=== PATIENT | male | born 1940 | race Caucasian/White ===

== ENCOUNTER 2022-05-03 19:04 | Emergency (ER) | payer OTHER ==
--- OUTSIDE RECORDS SUMMARY | 2022-05-03 19:08 | XMS REPORT | Continuity of Care Document ---
:[address] [facility] t Address [address] [place] [address] [address] [place] [address] Care Team Providers Name Role Phone CHELSEA JULIAN Primary Care Physician Unavailable PEDRO ARREOLA Attending Clinician Unavailable TRAV ALTAMIRANO Attending Clinician Unavailable VALERY CANALES Attending Clinician Unavailable RADIOLOGY Attending Clinician Unavailable Radiology Attending Clinician Unavailable CHELSEA JULIAN Admitting Clinician Unavailable Payers Payer Name Policy Type Policy Number Effective Date Expiration Date S anthony FOR LIFE [id number] 2021 00:00:00 MEDICARE PART A [id number] 2006 \T\ B 00:00:00 FOR LIFE [id number] 2021 00:00:00 Problems This patient has no known problems. Allergies, Adverse Reactions, Alerts Allergy Allergy Status Severity Reaction(s) Onset Inactive Treating Comm ents Source Name Type Date Date Clinician NO KNOWN Drug Active [facility] ALLERGIE Class [facility] of [facility] [place] [facility] Social History Social Habit Start Date Stop Date Quantity Comments Source Sex Assigned At [birth year] [facility] 00:00:00 00:00:00 Medical Branch Smoking Status Start Date Stop Date Source Tobacco smoking consumption [facility] Medical unknown Branch Medications Ordered Filled Start Stop Current Ordering Indication Dosage Frequency Signature Comments Components Source Medication Medication Date Date Medication? Clinician (SIG) Name Name iopamidol 2021-02- No [id number] 79mL 79 mL, U nivers (ISOVUE 2-08 12-08 Intravenou ity o f 370-500 mL) 17:30: 16:44 s, ONCE, 1 [place] injection 00 :00 dose, On Medica l 79 mL [facility] Branch 01/17/22 at 1130, Routine Procedures Procedure Date / Time Performing Clinician Source Performed HB CREATININE SERUM/BLOOD 2022-01-17 17:28:00 Radiology Un [facility] FOR IMAGING Medical Branch CT ABDOMEN PELVIS W 2022-01-17 16:43:17 Requisition, Paper [facility] CONTRAST Medical Branch [facility] PATIENT FINANCIAL 2022-01-17 15:47:15 Doctor Unassigned, [facility] POLICY [facility] NO SHOW OR MISSED 2022-01-17 15:46:57 Doctor Unassigned, [facility] APPOINTMENT POLICY [facility] ACKNOWLEDGEMENT NOTICE OF PRIVACY 2022-01-17 15:46:36 Doctor Unassigned, [facility] PRACTICES [facility] ASSIGNMENT OF BENEFITS 2022-01-17 15:46:19 Doctor Unassigned, [facility] CONSENT/REFUSAL FOR 2022-01-17 15:46:03 Doctor Unassigned, [facility] DIAGNOSIS AND TREATMENT [facility] Encounters Start End Encounter Admission Attending Care Care Encounter Source Date/Time Date/Time Type Type Clinicians Facility Department ID 2022-04-22 2022-04-22 Emergency E MAXWELL, [facility] [id number] [facility] 16:56:00 20:06:00 PEDRO 2022-01-29 2022-02-02 Outpatient E EVELIA [facility] MED [id number] [facility] 16:36:00 12:35:00 TRAV 2022-01-31 2022-01-31 Outpatient [facility] [id number] [place] 13:30:00 13:30:00 Health 2022-01-27 2022-01-27 Emergency E ALLY, [facility] [id number] [facility] 11:22:00 14:19:00 VALERY 2022-01-17 2022-01-17 Outpatient R RADIOLOGY [facility] [id number] [facility] 09:48:46 23:59:00 ity [facility] Medical Branch 2022-01-17 2022-01-17 Hospital Radiology [facility] [id number] [facility] 09:48:46 23:59:00 Encounter [place] [id number] itBonny [id number] [facility] [id number] [place] [address] Branch 2021-10-18 2021-10-18 Emergency E ALLY, FB FB [id number] [facility] 10:08:00 12:33:00 VALERY Results Test Description Test Time Test Comments Results Result Comments Source POCT CREATININE 2022-01-17 20:19:45 Test Item Value Reference Range Interpretation Comme nts POCT Creatinine (test code = [id number]) 1.3 mg/dL 0.6-1.3 Lab Interpretation (test code = 30734-7) Normal [facility]
[2022-05-03] MEDS ORDERED: ONDANSETRON 4 MG/2 ML VIAL ONE (20:02)
[2022-05-03] MEDS ORDERED: HYDRALAZINE HCL 20 MG/ML VIAL ONE (20:02)
[2022-05-03] MEDS ORDERED: MORPHINE 4 MG/ML SYR ONE (20:02)
--- NOTE | 2022-05-03 20:35 | RAD REPORT ---
EXAM DESCRIPTION: CT - Head Brain Wo Cont - 05/03/2022 8:00 pm CLINICAL HISTORY: Dizziness COMPARISON: None TECHNIQUE: Computed axial tomography of the head was obtained. IV contrast was not requested. All CT scans are performed using dose optimization technique as appropriate and may include automated exposure control or mA/KV adjustment according to patient size. FINDINGS: An intracranial bleed is not seen The ventricles are normal in caliber No extra-axial fluid collection is noted. Empty sella turcica. No significant hypodensity within the brain. Fluid within the sinuses/ mastoids is not seen. IMPRESSION: No acute intracranial abnormality is seen If patient's symptoms persist MRI of the brain would be recommended
--- NOTE | 2022-05-03 20:42 | RAD REPORT ---
EXAM DESCRIPTION: CT - Abdomen Pelvis Wo Contrast - 05/03/2022 8:02 pm CLINICAL HISTORY: Abdominal pain COMPARISON: None TECHNIQUE: Computed axial tomography of the abdomen and pelvis was obtained. IV and oral contrast we re not requested. All CT scans are performed using dose optimization technique as appropriate and may include automated exposure control or mA/KV adjustment according to patient size. FINDINGS: The evaluation of solid organs, vessels and bowel is limited secondary to the lack of con trast administration. Bilateral renal cysts. Largest right kidney measuring 11 centimeters. No hydronephrosis. Atherosclerotic disease. Liver, spleen, pancreas and adrenals appear grossly normal Diverticula stem from the colon without evidence of diverticulitis Moderate to marked prostatic enlargement IMPRESSION: No acute abnormality is displayed.
--- NOTE | 2022-05-03 21:05 | RAD REPORT ---
EXAM DESCRIPTION: Yudelka Single View05/03/2022 8:43 pm CLINICAL HISTORY: sob COMPARISON: none FINDINGS: The lungs appear clear of acute infiltrate. The heart is normal size IMPRESSION: No acute abnormalities displayed
[2022-05-03 21:27] LABS: Absolute Lymphocytes (CBC) 0.7 K/uL (0.7-4.9); Hematocrit 38.5 % (39.6-49.0); Lymphocytes % 24.7 % (15.3-44.8); MPV 9.6 fL (7.6-11.3); RBC Red Blood Cell Count 4.23 M/uL (4.33-5.43)
[2022-05-03 21:33] LABS: Protime INR 1.02
[2022-05-03 21:51] LABS: ALT/SGPT 18 U/L (16-61); AST/SGOT 11 U/L (15-37); Albumin 4.1 g/dL (3.4-5.0); Alkaline Phosphatase 65 U/L (45-117); BUN Blood Urea Nitrogen 12 mg/dL (7-18); Bicarbonate 30 mEq/L (21-32); Bilirubin Direct < 0.1 mg/dL (0-0.2); Bilirubin Total 0.4 mg/dL (0.2-1.0); Glomerular Filtration Rate 59 ml/min (=/>90); Glucose Level 173 mg/dL (74-106); NT PRO-BNP 544 pg/mL (<450); Potassium 3.4 mEq/L (3.5-5.1); Protein, Total 7.3 g/dL (6.4-8.2); Sodium Level 136 mEq/L (136-145); Troponin High Sensitivity 23.3 pg/mL (<58.9)
--- NOTE | 2022-05-03 23:00 | ER ---
Nurse's Notes [facility] Name: Hero Carney Age: 82 yrs Sex: Male : 1940 Arrival Date: 05/03/2022 Time: 19:09 Bed 3 Private MD: Diagnosis: Vomiting, unspecified;Right renal cyst, acute vomiting, abdominal pain, hypertensive emergency, history of recurrent pancreatitis, elevated lipase Presentation: 05/03 19:27 Chief complaint: Patient states: I have pancreatitis and it seems like every time it kd3 flares up my blood pressure elevates. We are very worried about the blood pressure. I am already on medications for pancreatitis. I am just worried about the blood pressure. Ebola Screen: No symptoms or risks identified at this time. Initial Sepsis Screen: Does the patient meet any 2 criteria? No. Patient's initial sepsis screen is negative. Does the patient have a suspected source of infection? No. Patient's initial sepsis screen is negative. Risk Assessment: Do you want to hurt yourself or someone else? Patient reports no desire to harm self or others. Onset of symptoms was May 03, 2022. 19:27 Method Of Arrival: Ambulatory kd3 19:31 Coronavirus screen: Vaccine status: Patient reports receiving the 2nd dose of the covid kd3 vaccine. 19:31 Acuity: LUCINDA 2 kd3 Triage Assessment: 19:31 Headache History: Denies prior headaches. General: Appears uncomfortable, Behavior is kd3 calm, cooperative. Pain: Complains of pain in headache Pain currently is 8 out of 10 on a pain scale. Pain began gradually, Also complains of nausea. Neuro: Level of Consciousness is awake, alert, obeys commands, Oriented to person, place, time, situation. Historical: - Allergies: 19:31 No Known Allergies; kd3 - Immunization history:: Adult Immunizations up to date. - Social history:: Smoking status: unknown Smoking status: Patient denies any tobacco usage or history of. - Family history:: not pertinent. Screenin:08 [facility] ED Fall Risk Assessment (Adult) History of falling in the last 3 months, vc1 including since admission No falls in past 3 months (0 pts) Confusion or Disorientation No (0 pts) Intoxicated or Sedated No (0 pts) Impaired Gait No (0 pts) Mobility Assist Device Used No (0 pt) Altered Elimination No (0 pt) Score/Fall Risk Level 0 - 2 = Low Risk Oriented to surroundings, Maintained a safe environment, Educated pt \T\ family on fall prevention, incl call for assistance when getting out of bed. Abuse screen: Denies threats or abuse. Nutritional screening: No deficits noted. Tuberculosis screening: No symptoms or risk factors identified. Assessment: 19:31 Pain: Complains of pain in headache. Neuro: Level of Consciousness is awake, alert, kd3 obeys commands, Oriented to person, place, time, situation. Respiratory: Airway is patent Trachea midline Respiratory effort is even, unlabored, Respiratory pattern is regular, symmetrical. 21:00 Reassessment: No changes from previously documented assessment. Patient and/or family vc1 updated on plan of care and expected duration. Pain level reassessed. 22:00 Reassessment: Patient and/or family updated on plan of care and expected duration. Pain vc1 level reassessed. Patient is alert, oriented x 3, equal unlabored respirations, skin warm/dry/pink. Patient states feeling better. 23:05 Reassessment: Patient and/or family updated on plan of care and expected duration. Pain vc1 level reassessed. Patient is alert, oriented x 3, equal unlabored respirations, skin warm/dry/pink. Patient states symptoms have improved. Vital Signs: 19:27 Pulse 72; Resp 19; Temp 98.1(O); Pulse Ox 100% ; kd3 19:30 BP 235 / 81; kd3 19:31 Weight 81.19 kg; Height 6 ft. 0 in. ; kd3 21:29 BP 165 / 77; Pulse 70; Resp 17; Pulse Ox 100% ; vc1 22:00 BP 168 / 76; Pulse 55; Resp 14; Pulse Ox 99% ; vc1 23:06 BP 177 / 77; Pulse 67; Resp 13; Pulse Ox 98% ; vc1 19:31 Body Mass Index 24.28 (81.19 kg, 182.88 cm) kd3 ED Course: 19:09 Patient arrived in ED. mr 19:16 Adi Andrews MD is Attending Physician. sp4 19:31 Triage completed. kd3 19:31 Arm band placed on right wrist. kd3 19:40 Eloise Pace RN is Primary Nurse. vc1 20:02 CT Head Brain wo Cont In Process Unspecified. EDMS 20:04 CT Abd/Pelvis - Without Contrast In Process Unspecified. EDMS 20:45 XRAY Chest (1 view) In Process Unspecified. EDMS 21:00 Patient has correct armband on for positive identification. Placed in gown. Bed in low vc1 position. Call light in reach. Client placed on continuous cardiac and pulse oximetry monitoring. NIBP monitoring applied. 21:15 Initial lab(s) drawn, by me, sent to lab. Inserted saline lock: 20 gauge in left bb antecubital area, using aseptic technique. Blood collected. 23:19 No provider procedures requiring assistance completed. IV discontinued, intact, vc1 bleeding controlled, No redness/swelling at site. Pressure dressing applied. Administered Medications: 21:25 Drug: Ondansetron IVP 4 mg Route: IVP; Site: left antecubital; vc1 23:20 Follow up: Response: No adverse reaction; Nausea is decreased; Other vc1 21:25 Drug: morphine IVP or IV 4 mg Route: IVP; Infused Over: 4 mins; Site: left antecubital; vc1 22:00 Follow up: Response: No adverse reaction; Marked relief of symptoms; Pain is decreased vc1 22:57 Not Given (Duplicate Order): hydrALAZINE IVP 20 mg IVP once sp4 23:05 Drug: cloNIDine PO 0.2 mg Route: PO; vc1 23:20 Follow up: Response: Medication administered at discharge. vc1 23:05 Drug: [place] PO 10 mg-325 mg 1 tabs Route: PO; vc1 23:20 Follow up: Response: Medication administered at discharge. vc1 23:05 Drug: Ondansetron PO 4 mg Route: PO; vc1 23:20 Follow up: Response: Medication administered at discharge. vc1 Medication: 23:08 VIS not applicable for this client. vc1 Outcome: 23:00 Discharge ordered by . sp4 23:19 Discharged to home ambulatory. vc1 23:19 Condition: improved 23:19 Discharge instructions given to patient, Instructed on discharge instructions, follow up and referral plans. medication usage, Demonstrated understanding of instructions, follow-up care, medications, Prescriptions given X 2. 23:21 Patient left the ED. vc1 Signatures: Dispatcher [employer] RICHARD Asuncion Barker mr LavonneMillya, RN RN bb Kasie Esteves, RN RN kd3 Eloise Pace, RN RN vc1 Adi Andrews MD MD sp4
--- NOTE | 2022-05-03 23:00 | EDPHYS ---
Physician Documentation [facility] Name: Hero Carney Age: 82 yrs Sex: Male : 1940 Arrival Date: 05/03/2022 Time: 19:09 Bed 3 Private MD: ED Physician Adi Andrews HPI: 05/03 19:16 This 82 yrs old Male presents to ER via Unassigned with complaints of High sp4 Blood Pressure, Dizziness, Headache. 20:12 Very pleasant 82-year-old male with a history of hypertension and recurrent sp4 pancreatitis presents with acute worsening of nausea vomiting and abdominal pain and associated high blood pressure at home 245/100. Patient states that he has been in and out of [facility] in [place] for recurrent pancreatitis since January 2022. Patient developed persistent nausea and vomiting on January 24, 2022 and was evaluated several times at [facility] in [place] with 5 CTs and multiple other tests to determine the nature of acute pancreatitis and recurrent pancreatitis. Patient is scheduled to get upper endoscopy as well. Today patient developed vomiting he has vomited twice also worsening abdominal pain in upper abdomen and additionally noticed that his pressure was very high at home. Patient reported dizziness and associated headache. Historical: - Allergies: 19:31 No Known Allergies; kd3 - Immunization history:: Adult Immunizations up to date. - Social history:: Smoking status: unknown Smoking status: Patient denies any tobacco usage or history of. - Family history:: not pertinent. ROS: 20:12 Constitutional: Negative for fever, chills, and weight loss, positive for dizziness, sp4 headache, feeling unwell, abdominal pain, nausea vomiting, and elevated blood pressure Eyes: Negative for injury, pain, redness, and discharge, ENT: Negative for injury, pain, and discharge, Neck: Negative for injury, pain, and swelling, Cardiovascular: Negative for chest pain, palpitations, and edema, positive for dizziness, and elevated blood pressure Respiratory: Negative for shortness of breath, cough, wheezing, and pleuritic chest pain, Abdomen/GI: Negative for diarrhea, and constipation, positive for recurrent abdominal pain, upper abdominal pain, nausea, vomiting. Back: Negative for injury and pain, : Negative for injury, bleeding, discharge, and swelling, MS/Extremity: Negative for injury and deformity, Skin: Negative for injury, rash, and discoloration, Neuro: Negative for headache, weakness, numbness, tingling, and seizure, Psych: Negative for depression, anxiety, Allergy/Immunology: Negative for hives, rash, and allergies Endocrine: Negative for neck swelling, polydipsia, polyuria, polyphagia, and weight changes Hematologic/Lymphatic: Negative for swollen nodes, abnormal bleeding, and unusual bruising Exam: 20:12 Constitutional: This is a well developed, well nourished patient who is awake, alert, sp4 and in no acute distress. Head/Face: Normocephalic, atraumatic. Eyes: Pupils equal round and reactive to light, extra-ocular motions intact. Lids and lashes normal. Conjunctiva and sclera are not injected. Cornea within normal limits. Periorbital areas with no swelling, redness, or edema. ENT: Nares patent. No nasal discharge, no septal abnormalities noted. Tympanic membranes are normal and external auditory canals are clear. Oropharynx with no redness, swelling, or masses, exudates, or evidence of obstruction, uvula midline. Mucous membranes moist. Neck: Trachea midline, no thyromegaly or masses palpated, and no cervical lymphadenopathy. Supple, full range of motion without nuchal rigidity, or vertebral point tenderness. No Meningismus. Chest/axilla: Normal chest wall appearance and motion. Nontender with no deformity. No lesions are appreciated. Cardiovascular: Regular rate and rhythm with a normal S1 and S2. No gallops, murmurs, or rubs. Normal PMI, no JVD. No pulse deficits. Respiratory: Lungs have equal breath sounds bilaterally, clear to auscultation and percussion. No rales, rhonchi or wheezes noted. No increased work of breathing, no retractions or nasal flaring. Abdomen/GI: Soft, with normal bowel sounds. No distension or tympany. No guarding or rebound. Positive for upper abdominal tenderness Back: No spinal tenderness. No costovertebral tenderness. Skin: Warm, dry with normal turgor. Normal color with no rashes, no lesions, and no evidence of cellulitis. MS/ Extremity: Pulses equal, no cyanosis. Neurovascular intact. Full, normal range of motion. Neuro: Awake and alert, GCS 15, oriented to person, place, time, and situation. Cranial nerves II-XII grossly intact. Motor strength 5/5 in all extremities. Sensory grossly intact. Psych: Awake, alert, with orientation to person, place and time. Behavior, mood, and affect are within normal limits 21:08 ECG was reviewed by the Attending Physician. EKG time 2037 sinus bradycardia at the sp4 rate of 58, with sinus arrhythmia no ST elevation or depression, no ventricular ectopy, premature atrial contractions, no signs of acute ischemia Vital Signs: 19:27 Pulse 72; Resp 19; Temp 98.1(O); Pulse Ox 100% ; kd3 19:30 BP 235 / 81; kd3 19:31 Weight 81.19 kg; Height 6 ft. 0 in. ; kd3 21:29 BP 165 / 77; Pulse 70; Resp 17; Pulse Ox 100% ; vc1 22:00 BP 168 / 76; Pulse 55; Resp 14; Pulse Ox 99% ; vc1 23:06 BP 177 / 77; Pulse 67; Resp 13; Pulse Ox 98% ; vc1 19:31 Body Mass Index 24.28 (81.19 kg, 182.88 cm) kd3 MDM: 19:32 Patient medically screened. sp4 21:08 Differential diagnosis: hypertensive crisis, Malignant HTN, intracerebral hemorrhage. sp4 Data reviewed: vital signs, nurses notes. 21:09 ED course: CT head revealed no acute intracranial abnormality, no hemorrhage CT abdomen sp4 and pelvis without contrast revealed no acute abnormality, bilateral renal cysts with the largest renal cyst measuring 11 cm with no hydronephrosis, chest x-ray revealed no acute cardiopulmonary abnormality.. 22:57 Consideration of Admission/Observation Escalation of care including sp4 admission/observation considered. ED course: Patient's work-up today reveals no signs of inflamed pancreas on the CT, lipase only slightly elevated at 103. no sign of acute SD, no acute intracranial hemorrhage, otherwise work-up positive for large right renal cyst 11 cm in diameter. Right renal cyst appears to be benign on the CT. patient is stable for discharge home with advised to continue his blood pressure medications. Blood pressure has improved after pain management in the ER. Will advise clear liquids for the next 12 hours. Continue follow-up with [facility] for evaluation of recurrent pancreatitis. 05/03 19:17 Order name: Basic Metabolic Panel; Complete Time: 22:30 sp4 05/03 19:17 Order name: CBC with Diff; Complete Time: 21:47 sp4 05/03 19:17 Order name: LFT's; Complete Time: 22:30 sp4 05/03 19:17 Order name: NT PRO-BNP; Complete Time: 22:30 sp4 05/03 19:17 Order name: PT-INR; Complete Time: 21:47 sp4 05/03 19:17 Order name: Troponin HS; Complete Time: 22:30 sp4 05/03 19:35 Order name: Lipase; Complete Time: 22:52 sp4 05/03 19:17 Order name: XRAY Chest (1 view); Complete Time: 21:47 sp4 05/03 19:39 Order name: CT Head Brain wo Cont; Complete Time: 21:47 sp4 05/03 19:39 Order name: CT Abd/Pelvis - Without Contrast; Complete Time: 21:47 sp4 05/03 19:17 Order name: EKG; Complete Time: 19:18 sp4 05/03 19:17 Order name: Cardiac monitoring; Complete Time: 20:52 4 05/03 19:17 Order name: EKG - Nurse/Tech; Complete Time: 20:52 05/03 19:17 Order name: IV Saline Lock; Complete Time: 22:16 sp4 05/03 19:17 Order name: Labs collected and sent; Complete Time: 22:16 05/03 19:17 Order name: O2 Per Protocol; Complete Time: 20:52 sp05/03 19:17 Order name: O2 Sat Monitoring; Complete Time: 20:52 4 EC:08 Rate is 58 beats/min. Rhythm is irregular, Sinus bradycardia. QRS [place] is Normal. [place] sp4 interval is normal. QRS interval is normal. QT interval is normal. No ST changes noted. Clinical impression: No evidence of ischemia. Interpreted by me. Administered Medications: 21:25 Drug: Ondansetron IVP 4 mg Route: IVP; Site: left antecubital; vc1 23:20 Follow up: Response: No adverse reaction; Nausea is decreased; Other vc1 21:25 Drug: morphine IVP or IV 4 mg Route: IVP; Infused Over: 4 mins; Site: left antecubital; vc1 22:00 Follow up: Response: No adverse reaction; Marked relief of symptoms; Pain is decreased vc1 22:57 Not Given (Duplicate Order): hydrALAZINE IVP 20 mg IVP once sp4 23:05 Drug: cloNIDine PO 0.2 mg Route: PO; vc1 23:20 Follow up: Response: Medication administered at discharge. vc1 23:05 Drug: [place] PO 10 mg-325 mg 1 tabs Route: PO; vc1 23:20 Follow up: Response: Medication administered at discharge. vc1 23:05 Drug: Ondansetron PO 4 mg Route: PO; vc1 23:20 Follow up: Response: Medication administered at discharge. vc1 Disposition Summary: 05/03/22 23:00 Discharge Ordered Location: Home sp4 Problem: new sp4 Symptoms: have improved sp4 Condition: Stable sp4 Diagnosis - Vomiting, unspecified sp4 - Right renal cyst, acute vomiting, abdominal pain, hypertensive emergency, history sp4 of recurrent pancreatitis, elevated lipase Followup: sp4 - With: Private Physician - When: 5 - 6 days - Reason: Re-evaluation by your physician Discharge Instructions: - Discharge Summary Sheet sp4 - Hypertension, Adult, [id number] sp4 Forms: - Thank You Letter sp4 - Prescription Opioid Use sp4 Prescriptions: - Zofran 4 mg Oral Tablet - take 1 tablet by ORAL route every 12 hours As needed; 20 tablet; Refills: 0, sp4 Product Selection Permitted - Tramadol 50 mg Oral Tablet - take 1 tablet by ORAL route every 8 hours as needed for pain; 20 tablet; sp4 Refills: 0, Product Selection Permitted Signatures: Dispatcher [employer] Kasie Asif RN RN kd3 Eloise Pace RN RN vc1 Adi Andrews MD MD sp4
[2022-05-03] MEDS ORDERED: cloNIDine HCL 0.1 MG TAB ONE (23:06)
[2022-05-03] MEDS ORDERED: HYDROCODONE/APAP 10/325 TAB ONE (23:06)
[2022-05-03] MEDS ORDERED: ONDANSETRON 4 MG (ODT) TAB ONE (23:07)
[2022-05-04 00:31] VITALS: TEMP 99.1
[2022-05-04 00:32] VITALS: BP 119/49; O2SAT 99
--- NOTE | 2022-05-06 12:33 | EKG ---
Test Date: 2022-05-03 Test Time: 20:38:11 Dynamometer Tester: TOMMY MEASUREMENT RESULTS: Intervals: Rate: 58 VT: 142 QRSD: 88 QT: 442 QTc: 433 [place]: P: 19 VT: 142 QRS: -32 T: 13 INTERPRETIVE STATEMENTS: Sinus bradycardia with premature atrial complexes Left axis deviation Nonspecific ST abnormality Compared to ECG 01/27/2003 20:08:00 Atrial premature complex(es) now present Left-axis deviation now present Sinus rhythm no longer present Atrial abnormality no longer present ST (T wave) deviation still present Electronically Signed On 05-06-22 12:27:45 CDT by Bakari Boogie
== END 2022-05-03 23:21 | disposition home or self-care (01) ==
LOC: ER 19:04
DX: R11.10 Vomiting, unspecified (principal); I16.0 Hypertensive urgency; N28.1 Cyst of kidney, acquired; K86.1 Other chronic pancreatitis; R74.01 Elevation of levels of liver transaminase levels; R10.10 Upper abdominal pain, unspecified
CPT/HCPCS: 85025; 80048; 36415; 85610; 80076; 84484; 83690; 83880; 70450; 74176; 71045; 96375; 96374; 99284; Q0162; J2405; 93005; J0360